=== PATIENT | male | born 1950 | race Caucasian/White ===

== ENCOUNTER → 2018-01-15 | Outpatient (CLI) | payer MEDICARE, MEDICAID ==
[~2018-01-15] MED LIST: ASPI-621 PO; CELE200C PO; DOCU-131 PO; FINA5TAB4 PO; NAPR220C2 PO; ONDA4TAB10 PO; OXYC5TAB3 PO; TAMS0.4C2 PO; TRAM50TA2 PO; Trintellix PO; VALS1TAB26 PO
[2018-01-15 10:55] LABS: MICROSCOPIC NOT IND
[2018-01-15 10:57] LABS: CULTURE INDICATED? NO
[2018-01-15 11:01] LABS: BASOPHILS # (AUTO) 0.02 x10^3/uL (0-0.1); BASOPHILS % (AUTO) 0 % (0-1); EOSINOPHILS # (AUTO) 0.18 x10^3/uL (0-0.4); EOSINOPHILS % (AUTO) 3 % (1-7); LYMPHOCYTES # (AUTO) 1.94 x10^3/uL (1-3.4); LYMPHOCYTES % (AUTO) 29 % (22-44); MD NO; MEAN CORPUSCULAR HEMOGLOBIN 30.5 pg (27.5-34.5); MEAN CORPUSCULAR HGB CONC 33.7 g/dL (33.2-36.2); MEAN CORPUSCULAR VOLUME 90.4 fL (81-97); MEAN PLATELET VOLUME 7.4 fL (7.4-10.4); MONOCYTES # (AUTO) 0.46 x10^3/uL (0.2-0.8); MONOCYTES % (AUTO) 7 % (2-9); NEUTROPHILS # (AUTO) 4.16 x10^3/uL (1.8-6.8); NEUTROPHILS % (AUTO) 62 % (42-75); PLATELET COUNT 240 x10^3/uL (130-400); RED BLOOD COUNT 4.55 x10^6/uL (4.38-5.82); RED CELL DISTRIBUTION WIDTH 13.6 % (9.4-14.8)
[2018-01-15 11:11] LABS: CHLORIDE 108 mmol/L (98-107)
[2018-01-15 11:15] LABS: INTERNATIONAL NORMALIZED RATIO 1.06 (0.93-1.1); PROTHROMBIN TIME 10.9 Seconds (9.6-11.5)
[2018-01-15 11:29] LABS: ALBUMIN 4.2 g/dL (3.4-5.0); ALKALINE PHOSPHATASE 59 U/L (45-117); ANION GAP 5 mmol/L (5-15); BILIRUBIN,TOTAL 0.7 mg/dL (0.2-1.0); CALCIUM 8.9 mg/dL (8.5-10.1); CREATININE 0.93 mg/dL (0.7-1.3); TOTAL PROTEIN 7.8 g/dL (6.4-8.2)
[2018-01-15 11:49] LABS: ALANINE AMINOTRANSFERASE 22 U/L (12-78)
== END | disposition home or self-care (01) ==
LOC: STAR 09:09
PROVIDERS: ATTEND Orthopaedic Surgery
DX: Z01.818 Encounter for other preprocedural examination (principal); M16.11 Unilateral primary osteoarthritis, right hip
CPT/HCPCS: 36415; 80053; 81003; 83036; 85025; 85610; 85730; 87081; 87806; 93005; G0475

== ENCOUNTER 2018-01-20 06:53 | Inpatient (IN) | payer MEDICARE, MEDICAID ==
[~2018-01-20] VITALS: Ht 170.2 cm; Wt 79.5 kg
[~2018-01-20 06:53] MED LIST changes: -ASPI-621 PO; -CELE200C PO; -DOCU-131 PO; -ONDA4TAB10 PO; -OXYC5TAB3 PO; -TRAM50TA2 PO
[2018-01-20] MEDS ORDERED: KETOROLAC 60 MG/2 ML ONE (06:55)
[2018-01-20] MEDS ORDERED: EPINEPHRINE 1 MG/ML, 1ML ONE (06:56)
[2018-01-20] MEDS ORDERED: ROPIvacaine/PF 0.2%, 20 ML ONE (06:56)
[2018-01-20] MEDS ORDERED: TRANEXAMIC ACID 100 MG/ML, 10ML ONE ×4 (06:56)
[2018-01-20] MEDS ORDERED: LACTATED RINGERS 1,000 ML IV SCH (07:50)
[2018-01-20] MEDS ORDERED: ACETAMINOPHEN 500 MG TABLET PO ONE (08:00)
[2018-01-20] MEDS ORDERED: GABAPENTIN 300 MG CAPSULE PO ONE (08:00)
[2018-01-20] MEDS ORDERED: SCOPOLAMINE PATCH, 1.5MG PATCH.TD72 TD ONE (08:30)
[2018-01-20] MEDS ORDERED: ONDANSETRON 2MG/ML, 2ML IV PRN (09:30)
[2018-01-20] MEDS ORDERED: HYDROmorphone 1 MG/ML, 1ML IV PRN ×2 (09:30→11:30)
[2018-01-20] MEDS ORDERED: PROMETHAZINE 25 MG/ML, 1ML IM PRN (09:30)
[2018-01-20] MEDS ORDERED: DIPHENHYDRAMINE 50 MG CAPSULE PO PRN (09:30)
[2018-01-20] MEDS ORDERED: ALUMINUM/MAG/SIMETHICONE 30 ML UDC PO PRN (09:30)
[2018-01-20] MEDS ORDERED: ONDANSETRON 4 MG TABLET PO PRN (09:30)
[2018-01-20] MEDS ORDERED: ACETAMINOPHEN 650 MG/20.3 ML UDC PO PRN (09:30)
[2018-01-20] MEDS ORDERED: MAGNESIUM HYDROXIDE 8%, 30ML UDC PO PRN (09:30)
[2018-01-20] MEDS ORDERED: SENNA/DOCUSATE TABLET PO PRN (09:30)
[2018-01-20] MEDS ORDERED: MIDAZOLAM 1 MG/ML, 2ML ONE (10:06)
[2018-01-20] MEDS ORDERED: FENTANYL PF 250 MCG/5ML ONE ×2 (10:06→11:25)
[2018-01-20] MEDS ORDERED: LIDOCAINE-MPF 2% ,5ML ONE (10:08)
[2018-01-20] MEDS ORDERED: PROPOFOL 10 MG/ML, 20ML ONE (10:08)
[2018-01-20] MEDS ORDERED: WATER-INJECTION,STERILE 10 ML IV ONE (10:09)
[2018-01-20] MEDS ORDERED: CEFAZOLIN 1,000 MG ONE ×2 (10:09)
[2018-01-20] MEDS ORDERED: DEXAMETHASONE 4 MG/ML, 1ML ONE ×2 (10:10)
[2018-01-20] MEDS ORDERED: ROCURONIUM 10 MG/ML,10ML ONE (10:54)
[2018-01-20] MEDS ORDERED: LABETALOL 5MG/ML, 20ML IV PRN (11:30)
[2018-01-20] MEDS ORDERED: HALOPERIDOL 5 MG/ML IV PRN (11:30)
[2018-01-20] MEDS ORDERED: OXYcodone 5 MG/5 ML ORAL.SOL UDC PO PRN (11:30)
[2018-01-20] MEDS ORDERED: hydrALAzine 20 MG/ML, 1ML IV PRN (11:30)
[2018-01-20] MEDS ORDERED: PROMETHAZINE 25 MG/ML, 1ML IV PRN (11:30)
[2018-01-20] MEDS ORDERED: GLYCOPYRROLATE 0.4 MG/2 ML, 2ML ONE (12:06)
[2018-01-20] MEDS ORDERED: ONDANSETRON 2MG/ML, 2ML ONE ×2 (12:07)
[2018-01-20] MEDS ORDERED: TRANEXAMIC ACID 1,000 MG in SODIUM CHLORIDE 0.9% 100 ML IVPB ONE (12:25)
[2018-01-20] MEDS ORDERED: MEPERIDINE/PF 50 MG/ML ONE (12:27)
[2018-01-20] MEDS: MEPERIDINE/PF 25MG/0.5ML IVPush PRN ×2 (12:30→12:45)
[2018-01-20] MEDS ORDERED: OXYcodone 5 MG/5 ML ORAL.SOL UDC ONE (12:32)
[2018-01-20] MEDS ORDERED: FENTANYL PF 100 MCG/2ML ONE (12:34)
[2018-01-20] MEDS: FENTANYL PF 100 MCG/2ML IV PRN ×3 (12:35→13:00)
[2018-01-20] MEDS ORDERED: HYDROmorphone 2 MG/ML, 1ML ONE (12:58)
[2018-01-20] MEDS ORDERED: CEFAZOLIN PMX 1GM/50ML 50 ML IVPB SCH (15:00)
[2018-01-20] MEDS: D5%-0.45NACL+KCL 20MEQ 1,000 ML IV SCH (15:35)
[2018-01-20] MEDS: ASPIRIN 81 MG TABLET EC PO SCH (17:20)
[2018-01-20] MEDS: OXYcodone IR 5MG TABLET PO PRN ×2 (17:20→23:22)
[2018-01-20] MEDS: DOCUSATE 100 MG CAPSULE PO SCH (20:29)
[2018-01-20] MEDS: FINASTERIDE 5 MG TABLET PO SCH (20:29)
[2018-01-20] MEDS: TAMSULOSIN 0.4 MG CAP.ER.24H PO SCH (20:29)
[2018-01-20] MEDS: CEFAZOLIN PMX 1GM/50ML 50 ML IVPB SCH (20:30)
[2018-01-20 20:31] VITALS: BP 94/59
[2018-01-21] MEDS: D5%-0.45NACL+KCL 20MEQ 1,000 ML IV SCH ×2 (01:00→11:00)
[2018-01-21 01:34] VITALS: BP 97/59
[2018-01-21] MEDS ORDERED: ASPI-621 PO (02:05)
[2018-01-21] MEDS ORDERED: ONDA4TAB10 PO (02:06)
[2018-01-21] MEDS ORDERED: DOCU-131 PO (02:07)
[2018-01-21] MEDS ORDERED: CELE200C PO (02:08)
[2018-01-21] MEDS ORDERED: TRAM50TA2 PO (02:10)
[2018-01-21] MEDS ORDERED: OXYC5TAB3 PO (02:12)
[2018-01-21] MEDS: OXYcodone IR 5MG TABLET PO PRN ×3 (03:25→13:12)
[2018-01-21] MEDS: CEFAZOLIN PMX 1GM/50ML 50 ML IVPB SCH (04:03)
[2018-01-21] MEDS ORDERED: DEXAMETHASONE 4 MG/ML, 1ML IVPush SCH (06:00)
[2018-01-21] MEDS: ASPIRIN 81 MG TABLET EC PO SCH (06:30)
[2018-01-21 07:30] VITALS: BP 96/50
[2018-01-21 08:56] VITALS: BP 93/59
[2018-01-21] MEDS ORDERED: HYDROCHLOROTHIAZIDE 25 MG TABLET PO SCH (09:00)
[2018-01-21] MEDS ORDERED: VALSARTAN 160 MG TABLET PO SCH (09:00)
[2018-01-21] MEDS ORDERED: MULTIVITAMINS/MINERALS TABLET PO SCH (09:00)
[2018-01-21] MEDS ORDERED: TAMSULOSIN 0.4 MG CAP.ER.24H PO SCH (09:00)
[2018-01-21] MEDS ORDERED: FINASTERIDE 5 MG TABLET PO SCH (09:00)
[2018-01-21] MEDS: DOCUSATE 100 MG CAPSULE PO SCH (09:01)
[2018-01-21] MEDS: TAMSULOSIN 0.4 MG CAP.ER.24H PO SCH (09:02)
[2018-01-21] MEDS: FINASTERIDE 5 MG TABLET PO SCH (09:03)
[2018-01-21] MEDS ORDERED: KETOROLAC 30 MG/1 ML IV SCH (15:00)
== END 2018-01-21 14:06 | disposition home or self-care (01) | DRG 470 ==
LOC: ORIP 06:53 → 4NOR 14:02 → DCLOUNGE 01-21 13:45
PROVIDERS: ADMIT Orthopaedic Surgery; ATTEND Orthopaedic Surgery
PROC: 0SR903Z Replacement of Right Hip Joint with Ceramic Synthetic Substitute, Open Approach (ICD-10-PCS; principal; 2018-01-20 11:15)
DX: M16.11 Unilateral primary osteoarthritis, right hip (principal)
CPT/HCPCS: 36415; 85014; 85018; 86850; 86900; C1713; J0171; J0690; J1100; J1170; J1885; J2175; J2250; J2405; J2704; J2795; J3010; J3490; C1776; J3480; J7120